=== PATIENT | male | born 1965 | race Two or more races ===

== ENCOUNTER 2023-12-15 13:50 | Inpatient (IN) | payer MEDICAID, OTHER ==
[~2023-12-15] VITALS: Ht 162.6 cm; Wt 57.5 kg
[2023-12-15 14:54] LABS: Basophils # (auto) 0 10 ^3/uL (0-0.2); Basophils % (auto) 0.3 % (0.0-2.0); Eosinophils # (auto) 0 10 ^3/uL (0-0.8); Eosinophils % (auto) 0.2 % (0.0-7.0); Hematocrit 51.8 % (41.0-53.0); Hemoglobin 17.2 g/dL (13.5-17.5); Lymphocytes # (auto) 0.9 10 ^3/uL (0.4-5.4); Lymphocytes % (auto) 9.6 % (10.0-50.0); Mean Corpuscular Hemoglobin 29.2 pg (28.0-32.0); Mean Corpuscular Hgb Conc. 33.1 g/dL (32.0-36.0); Mean Corpuscular Volume 88.1 fL (80.0-100.0); Monocytes # (auto) 0.3 10 ^3/uL (0-1.3); Monocytes % (auto) 3.3 % (0.0-12.0); Neutrophils # (auto) 8.2 10 ^3/uL (1.6-8.6); Neutrophils % (auto) 86.6 % (37.0-80.0); Platelet Count (auto) 314 10^3/uL (140-450); Red Blood Cells 5.88 10^6/uL (4.5-5.90); Red Cell Distribution Width 12.8 % (11.8-14.3); White Blood Cell 9.4 10^3/uL (4.4-10.8)
[2023-12-15 15:18] LABS: Alanine Aminotransferase 29 U/L (7-40); Albumin 4.4 g/dL (3.2-4.8); Alkaline Phosphatase 228 U/L (46-116); Anion Gap 18 (5-15); Aspartate Aminotransferase 17 U/L (13-40); BUN/Creatinine Ratio 14.3 (10.0-20.0); Blood Urea Nitrogen 27 mg/dL (9-23); Calcium 9.9 mg/dL (8.7-10.4); Carbon Dioxide 19 mmol/L (20-30); Chloride 91 mmol/L (98-107); Lipase 59 U/L (12-53); Potassium 5.3 mmol/L (3.5-5.1); Sodium 128 mmol/L (136-145)
[2023-12-15 15:19] LABS: Bilirubin, Total 0.6 mg/dL (0.2-1.0); Total Protein 7.6 g/dL (5.7-8.2)
[2023-12-15 15:28] LABS: Glucose 812 mg/dL (74-106)
[2023-12-15 15:31] LABS: Lactic Acid w/Reflex 4.5 mmol/L (0.4-2.0)
[2023-12-15 15:45] VITALS: PULSE 85; RESP 15; O2SAT 100
[2023-12-15] MEDS ORDERED: DEXTROSE (50%) 50ML SYRG IV PRN (15:45)
[2023-12-15] MEDS: SODIUM CHLORIDE 0.9% 1,000 ML IV ONE ×2 (16:00→19:30)
[2023-12-15 16:03] LABS: Base Excess -8.9 mmol/L (-2.0-2.0)
[2023-12-15] MEDS: LABETALOL HCL 20 MG/4 ML VL IV ONE (16:08)
[2023-12-15 16:15] LABS: Chloride 91 mmol/L (98-107); Potassium 5.4 mmol/L (3.5-5.1); Sodium 127 mmol/L (136-145)
[2023-12-15 16:16] LABS: Anion Gap 20 (5-15); Carbon Dioxide 16 mmol/L (20-30)
[2023-12-15 16:19] LABS: Magnesium 2.4 mg/dL (1.6-2.6)
[2023-12-15 16:21] LABS: BUN/Creatinine Ratio 10.1 (10.0-20.0); Blood Urea Nitrogen 20 mg/dL (9-23); Phosphorus 4.5 mg/dL (2.4-5.1)
[2023-12-15] MEDS: InsuLIN REG 1unit/0.01ml Soln (100units/ml) IV ONE (16:29)
[2023-12-15 16:33] LABS: Glucose 791 mg/dL (74-106)
[2023-12-15] MEDS: INSULIN DRIP 100 UNIT/100ML 100 ML IV SCH (16:36)
[2023-12-15] MEDS: ACCU-CHEK COMFORT CURVE STRIP VI SCH (16:36)
[2023-12-15] MEDS: SODIUM CHLORIDE 0.9% 2,000 ML IV ONE (17:53)
[2023-12-15] MEDS ORDERED: HYDROcodone-ACET 5/325MG TAB PO PRN (19:00)
[2023-12-15] MEDS ORDERED: HYDROmorphone HCL 2 MG/ML VL/or syr IV PRN (19:00)
[2023-12-15] MEDS ORDERED: DOCUSATE SOD 100 MG CAP PO PRN (19:00)
[2023-12-15] MEDS ORDERED: ACETAMINOPHEN 325 MG TAB PO PRN (19:00)
[2023-12-15] MEDS ORDERED: ONDANSETRON HCL 4 MG/2 ML VIAL IV PRN (19:00)
[2023-12-15 19:30] VITALS: PULSE 67; RESP 21; O2SAT 98
[2023-12-15 19:31] LABS: Chloride 99 mmol/L (98-107)
[2023-12-15 19:32] LABS: Anion Gap 20 (5-15); Carbon Dioxide 15 mmol/L (20-30)
[2023-12-15 19:33] LABS: Calcium 9.6 mg/dL (8.7-10.4)
[2023-12-15 19:37] LABS: BUN/Creatinine Ratio 11.6 (10.0-20.0); Blood Urea Nitrogen 21 mg/dL (9-23)
[2023-12-15 19:45] LABS: Sodium 134 mmol/L (136-145)
[2023-12-15 19:50] LABS: Glucose 654 mg/dL (74-106)
[2023-12-15 20:36] LABS: Creatinine, Urine 20.39 mg/dL (30.0-125.0)
[2023-12-15] MEDS: SODIUM CHLORIDE 0.9% 1,000 ML IV SCH (21:46)
[2023-12-15] MEDS: SODIUM CHLOR 0.9% PF (SALINE LOCK) 10ML VIAL/SYR IV SCH (21:46)
[2023-12-15 21:56] LABS: Potassium 3.6 mmol/L (3.5-5.1); Sodium 145 mmol/L (136-145)
[2023-12-15 21:57] LABS: Anion Gap 8 (5-15); Calcium 8.5 mg/dL (8.7-10.4); Carbon Dioxide 26 mmol/L (20-30)
[2023-12-15 22:02] LABS: BUN/Creatinine Ratio 13.7 (10.0-20.0); Blood Urea Nitrogen 18 mg/dL (9-23); Chloride 111 mmol/L (98-107); Glucose 293 mg/dL (74-106)
[2023-12-16] MEDS ORDERED: DEXTROSE (50%) 50ML SYRG IV PRN (02:45)
[2023-12-16 03:39] LABS: Basophils # (auto) 0 10 ^3/uL (0-0.2); Basophils % (auto) 0.3 % (0.0-2.0); Eosinophils # (auto) 0.2 10 ^3/uL (0-0.8); Eosinophils % (auto) 2.3 % (0.0-7.0); Hematocrit 39.8 % (41.0-53.0); Hemoglobin 14.2 g/dL (13.5-17.5); Lymphocytes # (auto) 1.6 10 ^3/uL (0.4-5.4); Lymphocytes % (auto) 22.1 % (10.0-50.0); Mean Corpuscular Hemoglobin 30.2 pg (28.0-32.0); Mean Corpuscular Hgb Conc. 35.7 g/dL (32.0-36.0); Mean Corpuscular Volume 84.7 fL (80.0-100.0); Monocytes # (auto) 0.6 10 ^3/uL (0-1.3); Monocytes % (auto) 8.1 % (0.0-12.0); Neutrophils # (auto) 4.8 10 ^3/uL (1.6-8.6); Neutrophils % (auto) 67.2 % (37.0-80.0); Nucleated Red Blood Cells % 0.3 %; Platelet Count (auto) 191 10^3/uL (140-450); Red Blood Cells 4.71 10^6/uL (4.5-5.90); Red Cell Distribution Width 12.4 % (11.8-14.3); White Blood Cell 7.1 10^3/uL (4.4-10.8)
[2023-12-16] MEDS: ACCU-CHEK COMFORT CURVE STRIP VI SCH (04:25)
[2023-12-16] MEDS: InsuLIN REG 1unit/0.01ml Soln (100units/ml) SC SCH (04:31)
[2023-12-16 04:40] LABS: Chloride 115 mmol/L (98-107); Potassium 3.4 mmol/L (3.5-5.1); Sodium 147 mmol/L (136-145)
[2023-12-16 04:41] LABS: Anion Gap 4 (5-15); Calcium 8.3 mg/dL (8.7-10.4); Carbon Dioxide 28 mmol/L (20-30)
[2023-12-16 04:45] VITALS: BP 176/84; PULSE 61; RESP 16; TEMP 98.5; O2SAT 99
[2023-12-16 04:46] LABS: BUN/Creatinine Ratio 11.7 (10.0-20.0); Blood Urea Nitrogen 13 mg/dL (9-23)
[2023-12-16 04:47] LABS: Glucose 138 mg/dL (74-106)
[2023-12-16 05:00] VITALS: BP 151/76; PULSE 58; RESP 16; TEMP 97.9; O2SAT 98
[2023-12-16] MEDS: LABETALOL HCL 20 MG/4 ML VL IV PRN (05:39)
[2023-12-16] MEDS ORDERED: InsuLIN REG 1unit/0.01ml Soln (100units/ml) SC SCH (06:00)
[2023-12-16 08:00] VITALS: BP 157/84; PULSE 57; PULSE 59; RESP 16; TEMP 97.8; O2SAT 99
[2023-12-16] MEDS ORDERED: POTASSIUM CHLORIDE 40 MEQ, LIDOCAINE 1% (LOCAL ANESTH.) 4 ML in SODIUM CHL 0.9% 250 ML IV STA (08:03)
[2023-12-16] MEDS ORDERED: cefTRIAXone 1GM/50ML D5W 50 ML IV STA (08:05)
[2023-12-16] MEDS ORDERED: POTASSIUM CHL 20 Meq TABLET PO STA (08:13)
[2023-12-16] MEDS ORDERED: D5W/SOD CHL 0.45% 1,000 ML IV SCH (08:15)
[2023-12-16] MEDS ORDERED: hydrALAZINE HCL 20 MG/ML VL IV PRN (09:15)
[2023-12-16 09:18] LABS: Urine Bacteria None Seen /hpf (None Seen); Urine Blood Negative /uL (Negative); Urine Clarity Clear (Clear); Urine Color Light-Yellow (Yellow); Urine Protein, UAD 1+ (Negative); Urine Specific Gravity 1.017 (1.001-1.035); Urine Urobilinogen Normal (Negative); Urine WBC 1 /hpf (0 - 3)
[2023-12-16 10:48] LABS: Anion Gap 7 (5-15); Carbon Dioxide 24 mmol/L (20-30); Chloride 108 mmol/L (98-107); Potassium 3.3 mmol/L (3.5-5.1); Sodium 139 mmol/L (136-145)
[2023-12-16 10:49] LABS: Calcium 8.3 mg/dL (8.7-10.4)
[2023-12-16 10:54] LABS: BUN/Creatinine Ratio 11.3 (10.0-20.0); Blood Urea Nitrogen 12 mg/dL (9-23); Magnesium 1.7 mg/dL (1.6-2.6)
[2023-12-16] MEDS: SODIUM CHL 0.9% IV STA (10:57)
[2023-12-16] MEDS: LIDOCAINE 1% IV STA (10:57)
[2023-12-16] MEDS: POTASSIUM CHLORIDE IV STA (10:57)
[2023-12-16 11:00] LABS: Glucose 345 mg/dL (74-106)
[2023-12-16 12:00] VITALS: BP 164/91; PULSE 59; RESP 16; TEMP 98.3; O2SAT 98
[2023-12-16] MEDS: MAGNESIUM SULFATE 1GM/100ML 100 ML IV SCH ×2 (12:00→16:46)
[2023-12-16] MEDS: POTASSIUM EFFERVESENT TAB 25 MEQ PO ONE (12:44)
[2023-12-16 12:48] LABS: Alanine Aminotransferase 20 U/L (7-40); Albumin 3.2 g/dL (3.2-4.8); Alkaline Phosphatase 121 U/L (46-116); Aspartate Aminotransferase 25 U/L (13-40)
[2023-12-16 12:49] LABS: Bilirubin, Total 0.6 mg/dL (0.2-1.0); Total Protein 5.5 g/dL (5.7-8.2)
[2023-12-16] MEDS: LISINOPRIL 5 MG TAB PO STA (12:49)
[2023-12-16 13:44] VITALS: PULSE 55; TEMP 36.8
[2023-12-16 15:27] LABS: Chloride 105 mmol/L (98-107); Potassium 4.3 mmol/L (3.5-5.1); Sodium 137 mmol/L (136-145)
[2023-12-16 15:28] LABS: Anion Gap 6 (5-15); Calcium 8.6 mg/dL (8.7-10.4); Carbon Dioxide 26 mmol/L (20-30)
[2023-12-16 15:33] LABS: BUN/Creatinine Ratio 9.6 (10.0-20.0); Blood Urea Nitrogen 10 mg/dL (9-23); Glucose 266 mg/dL (74-106)
[2023-12-16 16:00] VITALS: BP 138/76; PULSE 65; RESP 16; TEMP 98.2; O2SAT 99
[2023-12-16] MEDS ORDERED: MAGNESIUM SULFATE 1GM/100ML 100 ML IV ONE (16:30)
[2023-12-16] MEDS ORDERED: INSU1INJ26 SC (17:22)
[2023-12-16] MEDS ORDERED: LISI-275 PO (17:22)
[2023-12-16] MEDS ORDERED: METF-370 PO (17:22)
[2023-12-16] MEDS ORDERED: LANC-347 XX (17:22)
[2023-12-16] MEDS ORDERED: BLOO-169 XX (17:22)
[2023-12-17] MEDS ORDERED: cefTRIAXone 1GM/50ML D5W 50 ML IV SCH (09:00)
[2023-12-17] MEDS ORDERED: LISINOPRIL 5 MG TAB PO SCH (10:00)
[2023-12-19] MEDS ORDERED: BLOO1KIT60 XX (11:56)
== END 2023-12-16 20:25 | disposition home or self-care (01) | DRG 420 ==
LOC: ER 13:50 → TELE 18:50 → TELE-WESTW 12-16 04:45
PROVIDERS: ADMIT Internal Medicine Pulmonary Disease; ATTEND Internal Medicine Pulmonary Disease
DX: E11.10 Type 2 diabetes mellitus with ketoacidosis without coma (principal); N17.0 Acute kidney failure with tubular necrosis; E83.39 Other disorders of phosphorus metabolism; E86.0 Dehydration; I10 Essential (primary) hypertension; E87.6 Hypokalemia; E83.42 Hypomagnesemia; I16.0 Hypertensive urgency; Z79.4 Long term (current) use of insulin; Z79.899 Other long term (current) drug therapy
CPT/HCPCS: 36415; 36600; 74176; 76775; 80048; 80053; 81001; 82010; 82306; 82570; 82805; 82962; 83036; 83605; 83690; 83735; 83930; 83970; 84100; 84300; 84484; 85025; 93005; 96361; 96365; 96375; 99291; G0378; J1815; J2001

== ENCOUNTER 2023-12-22 14:20 | Inpatient (IN) | payer MEDICAID ==
[~2023-12-22] VITALS: Ht 162.6 cm; Wt 63.8 kg
[~2023-12-22 14:20] MED LIST: BLOO-169 XX; BLOO1KIT60 XX; INSU1INJ26 SC; LANC-347 XX; LISI-275 PO; METF-370 PO
[2023-12-22 16:18] LABS: Basophils # (auto) 0 10 ^3/uL (0-0.2); Basophils % (auto) 0.2 % (0.0-2.0); Eosinophils # (auto) 0 10 ^3/uL (0-0.8); Eosinophils % (auto) 0.4 % (0.0-7.0); Hematocrit 38.2 % (41.0-53.0); Hemoglobin 13.4 g/dL (13.5-17.5); Lymphocytes # (auto) 1.1 10 ^3/uL (0.4-5.4); Lymphocytes % (auto) 13.9 % (10.0-50.0); Mean Corpuscular Hemoglobin 29.9 pg (28.0-32.0); Mean Corpuscular Hgb Conc. 35.2 g/dL (32.0-36.0); Monocytes # (auto) 1.2 10 ^3/uL (0-1.3); Monocytes % (auto) 15.2 % (0.0-12.0); Neutrophils # (auto) 5.8 10 ^3/uL (1.6-8.6); Neutrophils % (auto) 70.3 % (37.0-80.0); Nucleated Red Blood Cells % 0.1 %; Platelet Count (auto) 220 10^3/uL (140-450); Red Blood Cells 4.49 10^6/uL (4.5-5.90); Red Cell Distribution Width 12.5 % (11.8-14.3); White Blood Cell 8.2 10^3/uL (4.4-10.8)
[2023-12-22 16:34] LABS: Alanine Aminotransferase 19 U/L (7-40); Alkaline Phosphatase 119 U/L (46-116); Anion Gap 8 (5-15); Aspartate Aminotransferase 31 U/L (13-40); BUN/Creatinine Ratio 12.1 (10.0-20.0); Bilirubin, Total 0.9 mg/dL (0.2-1.0); Blood Urea Nitrogen 12 mg/dL (9-23); Calcium 9.2 mg/dL (8.7-10.4); Carbon Dioxide 26 mmol/L (20-30); Chloride 98 mmol/L (98-107); Glucose 188 mg/dL (74-106); Potassium 4.3 mmol/L (3.5-5.1); Total Protein 6.5 g/dL (5.7-8.2)
[2023-12-22 16:40] LABS: Sodium 132 mmol/L (136-145)
[2023-12-22] MEDS ORDERED: HYDROmorphone HCL 2 MG/ML VL/or syr IV PRN (19:45)
[2023-12-22] MEDS ORDERED: ACETAMINOPHEN 325 MG TAB PO PRN (19:45)
[2023-12-22] MEDS ORDERED: ONDANSETRON HCL 4 MG/2 ML VIAL IV PRN (19:45)
[2023-12-22] MEDS: PIPERACILLIN-TAZOB 3.375GM 100 ML IV ONE (19:52)
[2023-12-22] MEDS: VANCOMYCIN 1GM/200ML 200 ML IV ONE (19:52)
[2023-12-22] MEDS ORDERED: DEXTROSE (50%) 50ML SYRG IV PRN (20:00)
[2023-12-22] MEDS: LACTATED RINGER'S 1,000 ML IV ONE (20:41)
[2023-12-22] MEDS: HYDROcodone-ACET 5/325MG TAB PO PRN (20:59)
[2023-12-22] MEDS: SODIUM CHLOR 0.9% PF (SALINE LOCK) 10ML VIAL/SYR IV SCH (21:24)
[2023-12-22] MEDS: ACCU-CHEK COMFORT CURVE STRIP VI SCH (22:34)
[2023-12-22] MEDS: InsuLIN REG 1unit/0.01ml Soln (100units/ml) SC SCH (22:37)
[2023-12-22 22:57] VITALS: BP 112/62; PULSE 71; RESP 18; TEMP 98.4; O2SAT 96
[2023-12-23] VITALS (7 sets, daily range): BP systolic 99–121; BP diastolic 46–71; PULSE 60–80; RESP 17–22; TEMP 97.9–98.7; O2SAT 96–100
[2023-12-23 06:48] LABS: Basophils # (auto) 0 10 ^3/uL (0-0.2); Basophils % (auto) 0.3 % (0.0-2.0); Eosinophils # (auto) 0.1 10 ^3/uL (0-0.8); Eosinophils % (auto) 1.3 % (0.0-7.0); Hematocrit 33.3 % (41.0-53.0); Hemoglobin 11.8 g/dL (13.5-17.5); Lymphocytes # (auto) 1.4 10 ^3/uL (0.4-5.4); Lymphocytes % (auto) 23.6 % (10.0-50.0); Mean Corpuscular Hemoglobin 30.2 pg (28.0-32.0); Mean Corpuscular Hgb Conc. 35.3 g/dL (32.0-36.0); Mean Corpuscular Volume 85.5 fL (80.0-100.0); Neutrophils # (auto) 3.3 10 ^3/uL (1.6-8.6); Neutrophils % (auto) 56.8 % (37.0-80.0); Nucleated Red Blood Cells % 0.3 %; Platelet Count (auto) 173 10^3/uL (140-450); Red Cell Distribution Width 12.3 % (11.8-14.3); White Blood Cell 5.7 10^3/uL (4.4-10.8)
[2023-12-23 07:09] LABS: Alanine Aminotransferase 13 U/L (7-40); Albumin 3.4 g/dL (3.2-4.8); Alkaline Phosphatase 92 U/L (46-116); Anion Gap 4 (5-15); Aspartate Aminotransferase 16 U/L (13-40); Bilirubin, Total 0.7 mg/dL (0.2-1.0); Blood Urea Nitrogen 11 mg/dL (9-23); Calcium 8.8 mg/dL (8.7-10.4); Carbon Dioxide 28 mmol/L (20-30); Chloride 103 mmol/L (98-107); Glucose 123 mg/dL (74-106); Potassium 3.8 mmol/L (3.5-5.1); Sodium 135 mmol/L (136-145); Total Protein 5.9 g/dL (5.7-8.2)
[2023-12-23] MEDS: ENOXAPARIN SOD 40 MG/0.4 ML SYRINGE SC SCH (09:53)
[2023-12-23] MEDS: LISINOPRIL 5 MG TAB PO SCH (09:54)
[2023-12-24] VITALS (7 sets, daily range): BP systolic 102–113; BP diastolic 61–68; PULSE 58–68; RESP 16–19; TEMP 97.9–98.7; O2SAT 94–100
[2023-12-24 06:35] LABS: Basophils # (auto) 0 10 ^3/uL (0-0.2); Basophils % (auto) 0.4 % (0.0-2.0); Eosinophils # (auto) 0.1 10 ^3/uL (0-0.8); Eosinophils % (auto) 1.9 % (0.0-7.0); Hematocrit 33.6 % (41.0-53.0); Hemoglobin 11.8 g/dL (13.5-17.5); Lymphocytes # (auto) 1.4 10 ^3/uL (0.4-5.4); Mean Corpuscular Hemoglobin 29.8 pg (28.0-32.0); Mean Corpuscular Volume 85.2 fL (80.0-100.0); Monocytes # (auto) 0.6 10 ^3/uL (0-1.3); Monocytes % (auto) 13.2 % (0.0-12.0); Neutrophils # (auto) 2.3 10 ^3/uL (1.6-8.6); Neutrophils % (auto) 52.5 % (37.0-80.0); Nucleated Red Blood Cells % 0.1 %; Platelet Count (auto) 216 10^3/uL (140-450); Red Blood Cells 3.94 10^6/uL (4.5-5.90); Red Cell Distribution Width 12.5 % (11.8-14.3); White Blood Cell 4.4 10^3/uL (4.4-10.8)
[2023-12-24 06:51] LABS: Alanine Aminotransferase 23 U/L (7-40); Albumin 3.4 g/dL (3.2-4.8); Alkaline Phosphatase 137 U/L (46-116); Anion Gap 5 (5-15); Aspartate Aminotransferase 34 U/L (13-40); BUN/Creatinine Ratio 10.6 (10.0-20.0); Blood Urea Nitrogen 10 mg/dL (9-23); Calcium 8.9 mg/dL (8.7-10.4); Carbon Dioxide 27 mmol/L (20-30); Chloride 102 mmol/L (98-107); Glucose 184 mg/dL (74-106); Sodium 134 mmol/L (136-145)
[2023-12-24 06:52] LABS: Bilirubin, Total 0.6 mg/dL (0.2-1.0); Total Protein 5.9 g/dL (5.7-8.2)
[2023-12-25 01:00] VITALS: BP 103/64; PULSE 60; RESP 18; TEMP 97.9; O2SAT 100
[2023-12-25 05:00] VITALS: BP 107/80; PULSE 71; RESP 17; TEMP 98.1; O2SAT 100
[2023-12-25 07:57] LABS: Basophils # (auto) 0 10 ^3/uL (0-0.2); Basophils % (auto) 0.5 % (0.0-2.0); Eosinophils # (auto) 0.1 10 ^3/uL (0-0.8); Eosinophils % (auto) 1.5 % (0.0-7.0); Hematocrit 34.3 % (41.0-53.0); Lymphocytes # (auto) 1.2 10 ^3/uL (0.4-5.4); Lymphocytes % (auto) 22.4 % (10.0-50.0); Mean Corpuscular Hemoglobin 29.9 pg (28.0-32.0); Mean Corpuscular Volume 85.6 fL (80.0-100.0); Monocytes # (auto) 0.5 10 ^3/uL (0-1.3); Monocytes % (auto) 9.6 % (0.0-12.0); Neutrophils # (auto) 3.4 10 ^3/uL (1.6-8.6); Nucleated Red Blood Cells % 0.1 %; Platelet Count (auto) 265 10^3/uL (140-450); Red Blood Cells 4.01 10^6/uL (4.5-5.90); Red Cell Distribution Width 12.6 % (11.8-14.3); White Blood Cell 5.2 10^3/uL (4.4-10.8)
[2023-12-25 08:11] LABS: Alanine Aminotransferase 26 U/L (7-40); Albumin 3.7 g/dL (3.2-4.8); Alkaline Phosphatase 152 U/L (46-116); Anion Gap 5 (5-15); Aspartate Aminotransferase 23 U/L (13-40); BUN/Creatinine Ratio 11.6 (10.0-20.0); Blood Urea Nitrogen 11 mg/dL (9-23); Calcium 9.3 mg/dL (8.7-10.4); Carbon Dioxide 27 mmol/L (20-30); Chloride 102 mmol/L (98-107); Glucose 163 mg/dL (74-106); Sodium 134 mmol/L (136-145)
[2023-12-25 08:12] LABS: Bilirubin, Total 0.5 mg/dL (0.2-1.0); Total Protein 6.4 g/dL (5.7-8.2)
[2023-12-25 09:00] VITALS: BP 91/50; PULSE 68; RESP 16; TEMP 98.7; O2SAT 97
[2023-12-25 13:00] VITALS: BP 112/63; PULSE 65; RESP 17; TEMP 98.5; O2SAT 98
[2023-12-25 17:00] VITALS: BP 122/59; PULSE 76; RESP 18; TEMP 99.3; O2SAT 99
[2023-12-25 21:00] VITALS: BP 113/69; PULSE 83; RESP 18; TEMP 97.7; O2SAT 97
[2023-12-26 01:00] VITALS: BP 121/70; PULSE 87; RESP 19; TEMP 98; O2SAT 97
[2023-12-26 05:00] VITALS: BP 113/72; PULSE 69; RESP 17; TEMP 98.1; O2SAT 98
[2023-12-26 07:00] LABS: Basophils # (auto) 0 10 ^3/uL (0-0.2); Basophils % (auto) 0.5 % (0.0-2.0); Eosinophils # (auto) 0.1 10 ^3/uL (0-0.8); Hematocrit 33.6 % (41.0-53.0); Lymphocytes # (auto) 1.4 10 ^3/uL (0.4-5.4); Lymphocytes % (auto) 26.2 % (10.0-50.0); Mean Corpuscular Hemoglobin 30.3 pg (28.0-32.0); Mean Corpuscular Hgb Conc. 35.7 g/dL (32.0-36.0); Mean Corpuscular Volume 84.8 fL (80.0-100.0); Monocytes # (auto) 0.5 10 ^3/uL (0-1.3); Monocytes % (auto) 8.9 % (0.0-12.0); Neutrophils # (auto) 3.3 10 ^3/uL (1.6-8.6); Neutrophils % (auto) 62.4 % (37.0-80.0); Platelet Count (auto) 301 10^3/uL (140-450); Red Blood Cells 3.96 10^6/uL (4.5-5.90); Red Cell Distribution Width 12.5 % (11.8-14.3); White Blood Cell 5.4 10^3/uL (4.4-10.8)
[2023-12-26 07:18] LABS: Alanine Aminotransferase 30 U/L (7-40); Albumin 3.7 g/dL (3.2-4.8); Alkaline Phosphatase 151 U/L (46-116); Anion Gap 7 (5-15); Aspartate Aminotransferase 25 U/L (13-40); BUN/Creatinine Ratio 12.2 (10.0-20.0); Bilirubin, Total 0.5 mg/dL (0.2-1.0); Blood Urea Nitrogen 11 mg/dL (9-23); Calcium 9.5 mg/dL (8.7-10.4); Carbon Dioxide 26 mmol/L (20-30); Chloride 103 mmol/L (98-107); Glucose 161 mg/dL (74-106); Potassium 3.9 mmol/L (3.5-5.1); Sodium 136 mmol/L (136-145); Total Protein 6.4 g/dL (5.7-8.2)
[2023-12-26 08:00] VITALS: PULSE 79; RESP 16; O2SAT 100
[2023-12-26 09:09] VITALS: BP 116/70; PULSE 79; RESP 19; TEMP 98.4; O2SAT 100
[2023-12-26 13:00] VITALS: BP 110/64; PULSE 61; RESP 20; TEMP 98.8; O2SAT 100
[2023-12-26] MEDS ORDERED: HYDR-4902 PO (13:15)
[2023-12-26 15:12] VITALS: BP 110/64; PULSE 61; RESP 20; TEMP 98.8; O2SAT 100
[2023-12-26] MEDS ORDERED: INSU0.5M41 XX (16:09)
== END 2023-12-26 16:40 | disposition home or self-care (01) | DRG 351 ==
LOC: ER 14:20 → OVERFLOW 19:37 → WEST WING 19:41 → OVERFLOW 19:41 → WEST WING 22:58
PROVIDERS: ADMIT Internal Medicine; ATTEND Internal Medicine Geriatric Medicine
DX: S93.401A Sprain of unspecified ligament of right ankle, initial encounter (principal); M84.471A Pathological fracture, right ankle, initial encounter for fracture; E11.9 Type 2 diabetes mellitus without complications; I10 Essential (primary) hypertension; L03.818 Cellulitis of other sites; Z83.3 Family history of diabetes mellitus; Y93.89 Activity, other specified; Y92.89 Other specified places as the place of occurrence of the external cause; Y99.8 Other external cause status; X50.1XXA Overexertion from prolonged static or awkward postures, initial encounter
CPT/HCPCS: 36415; 73600; 73700; 80053; 82962; 85025; 87040; 87081; 93971; 97163; G0378; J1815

== ENCOUNTER 2024-01-18 14:03 | Emergency (ER) | payer MEDICAID ==
[~2024-01-18] VITALS: Ht 160 cm; Wt 61.5 kg
[~2024-01-18 14:03] MED LIST changes: +HYDR-4902 PO; +INSU0.5M41 XX
[2024-01-18 15:38] VITALS: BP 147/83; PULSE 84; RESP 16; TEMP 99.1; O2SAT 99
[2024-01-18] MEDS ORDERED: TRIA0.02 TOP (16:37)
[2024-01-18] MEDS ORDERED: NAPR-746 PO (16:37)
[2024-01-18] MEDS ORDERED: ACYC1TAB3 PO (16:37)
== END 2024-01-18 16:44 | disposition home or self-care (01) ==
LOC: ER 14:03
DX: B02.9 Zoster without complications (principal); E11.9 Type 2 diabetes mellitus without complications; I10 Essential (primary) hypertension